=== PATIENT | female | born 1955 | race Caucasian/White ===

== ENCOUNTER 2020-09-23 06:57 | Outpatient (REF) | payer OTHER, SELFPAY ==
[2020-09-23 07:31] LABS: Hematocrit 29.3 % (37-47); Hemoglobin 9.3 g/dl (12.0-16.0); Mean Corpuscular HGB Conc 31.7 g/dl (31.0-35.0); Mean Corpuscular Volume 94.5 fL (80-98); Mean Platelet Volume 9.7 fL (9.4-12.3); NRBC Pct Auto 0.8 /100WBC (0.0-0.2); Platelet Count 142 X10*3/uL (160-400); Red Cell Distribution Width 15.1 % (11.0-16.0); White Blood Count 7.6 X10*3/uL (4.8-10.8)
[2020-09-23 07:46] LABS: Alanine Aminotransferase 39 U/L (0-31); Albumin Level 3.2 g/dL (3.5-5.0); Alkaline Phosphatase 65 U/L (39-117); Anion Gap 13 (12-20); Aspartate Amino Transferase 41 U/L (5-31); Bilirubin Total 0.7 mg/dL (0.0-1.0); Blood Urea Nitrogen 11 mg/dL (9-16); Calcium 8.1 mg/dL (8.4-10.2); Carbon Dioxide 28 mmol/L (22-29); Chloride 105 mmol/L (96-108); Estimated Glomerular Filt Rate > 60; Glucose Random 160 mg/dL (60-115); Potassium 3.7 mmol/l (3.3-5.1); Sodium 142 mmol/L (135-145); Total Protein 5.6 g/dL (6.5-8.0)
[2020-09-24 08:12] LABS: Glucose Urine UA NEG (NEG); Leukocyte Esterase Urine NEG (NEG); Nitrite Urine NEG (NEG); Urine Blood NEG (NEG); Urine Ketones NEG (NEG); Urine Protein NEG (NEG-TRACE)
[2020-09-24 08:21] LABS: Appearance Urine CLEAR; Color Urine YELLOW
== END 2020-09-23 06:58 | disposition home or self-care (01) ==
LOC: HO.MMNH1L 06:57
PROVIDERS: Visit Provider Family Medicine
DX: A41.9 Sepsis, unspecified organism (principal); S82.892A Other fracture of left lower leg, initial encounter for closed fracture; X58.XXXA Exposure to other specified factors, initial encounter; Y93.9 Activity, unspecified; Y92.9 Unspecified place or not applicable; Y99.9 Unspecified external cause status
CPT/HCPCS: 36415; 80053; 81003; 85027; 87086

== ENCOUNTER 2020-09-23 19:15 | Outpatient (REF) | payer OTHER, SELFPAY | END 2020-09-23 19:16 | disposition home or self-care (01) | LOC: HO.MMNH1L 19:15 | PROVIDERS: Visit Provider Family Medicine | DX: Z13.89 Encounter for screening for other disorder (principal) ==

== ENCOUNTER 2020-09-27 13:07 | Outpatient (REF) | payer OTHER, SELFPAY ==
[2020-09-27 07:58] LABS: Hematocrit 35.1 % (37-47); Hemoglobin 10.8 g/dl (12.0-16.0); Mean Corpuscular HGB Conc 30.8 g/dl (31.0-35.0); Mean Corpuscular Hemoglobin 30.3 pg (27.0-33.0); Mean Corpuscular Volume 98.3 fL (80-98); Mean Platelet Volume 9.7 fL (9.4-12.3); NRBC Pct Auto 0.4 /100WBC (0.0-0.2); Platelet Count 239 X10*3/uL (160-400); Red Blood Count 3.57 X10*6/uL (4.20-5.50); Red Cell Distribution Width 15.7 % (11.0-16.0); White Blood Count 13.1 X10*3/uL (4.8-10.8)
[2020-09-27 08:16] LABS: Anion Gap 18 (12-20); Blood Urea Nitrogen 15 mg/dL (9-16); Carbon Dioxide 33 mmol/L (22-29); Chloride 94 mmol/L (96-108); Estimated Glomerular Filt Rate 45; Glucose Random 110 mg/dL (60-115); Potassium 5.1 mmol/L (3.3-5.1); Sodium 140 mmol/L (135-145)
== END 2020-09-27 13:08 | disposition home or self-care (01) ==
LOC: HO.MMNH1L 13:07
PROVIDERS: Visit Provider Family Medicine
DX: A41.9 Sepsis, unspecified organism (principal); S82.892D Other fracture of left lower leg, subsequent encounter for closed fracture with routine healing; X58.XXXD Exposure to other specified factors, subsequent encounter
CPT/HCPCS: 36415; 80048; 85027

== ENCOUNTER 2020-10-04 10:40 | Outpatient (REF) | payer OTHER, SELFPAY ==
[2020-10-04 07:53] LABS: Hematocrit 34.5 % (37-47); Hemoglobin 10.7 g/dl (12.0-16.0); Mean Corpuscular Volume 96.6 fL (80-98); Mean Platelet Volume 9.9 fL (9.4-12.3); NRBC Pct Auto 0.2 /100WBC (0.0-0.2); Platelet Count 229 X10*3/uL (160-400); Red Blood Count 3.57 X10*6/uL (4.20-5.50); Red Cell Distribution Width 14.9 % (11.0-16.0); White Blood Count 10.4 X10*3/uL (4.8-10.8)
[2020-10-04 08:10] LABS: Anion Gap 18 (12-20); Blood Urea Nitrogen 8 mg/dL (9-16); Calcium 8.7 mg/dL (8.4-10.2); Carbon Dioxide 28 mmol/L (22-29); Chloride 99 mmol/L (96-108); Estimated Glomerular Filt Rate > 60; Glucose Random 142 mg/dL (60-115); Potassium 4.8 mmol/L (3.3-5.1); Sodium 140 mmol/L (135-145)
== END 2020-10-04 10:41 | disposition home or self-care (01) ==
LOC: HO.MMNH1L 10:40
PROVIDERS: Visit Provider Family Medicine
DX: S82.892D Other fracture of left lower leg, subsequent encounter for closed fracture with routine healing (principal); A41.9 Sepsis, unspecified organism
CPT/HCPCS: 36415; 80048; 85027

== ENCOUNTER 2023-05-31 09:06 | Outpatient (REF) | payer MEDICARE, SELFPAY | END 2023-05-31 09:07 | disposition home or self-care (01) | LOC: HO.HOSX 09:06 | PROVIDERS: Visit Provider Orthopaedic Surgery | DX: M25.561 Pain in right knee (principal); M25.562 Pain in left knee; G60.9 Hereditary and idiopathic neuropathy, unspecified; M21.40 Flat foot [pes planus] (acquired), unspecified foot; G89.4 Chronic pain syndrome; Z79.891 Long term (current) use of opiate analgesic; Z79.899 Other long term (current) drug therapy; Z91.81 History of falling; Z87.81 Personal history of (healed) traumatic fracture | CPT/HCPCS: 20610; 73560; 73565; 99212; J1100 ==

== ENCOUNTER 2023-05-31 10:15 | Outpatient (AMB) | payer MEDICARE, SELFPAY ==
--- NOTE | 2023-05-31 10:33 | MHC.OFFVIS ---
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 X rays updated today in the office. Fell 3 weeks ago while walking. She is on oxycodone and oxycontin. She uses a wheelchair. Allergies ciprofloxacin [From CIPRO] Allergy (Intermediate, Unverified 05/31/23 10:35) NECK BURNING/BLISTERS clarithromycin [From BIAXIN] Allergy (Intermediate, Unverified 05/31/23 10:35) NECK BURNING/BLISTERS Penicillins [PENICILLINS] Allergy (Intermediate, Unverified 05/31/23 10:35) HAND SWELLING/ITCHING levofloxacin [Levaquin] Allergy (Unknown, Verified 05/31/23 10:35) Unknown From CIPRO Allergy (Intermediate, Uncoded 05/31/23 10:35) NECK BURNING/BLISTERS Medication List - Last Reconciled 05/31/23 by Malika Egan RN aspirin ([facility] Aspirin) 81 mg PO DAILY calcium carbonate (Calcium 500) 500 mg PO DAILY carvedilol 12.5 mg PO BID dapagliflozin propanediol (Farxiga) 5 mg PO DAILY dulaglutide (Trulicity) 3 mg subcut QWEEK duloxetine 30 mg PO BID lactobacillus combination no.9 (Adult 50 Plus Probiotic) 4,000 mmu cells PO DAILY lactulose 20 grams PO BID magnesium oxide 400 mg PO DAILY meloxicam 15 mg PO DAILY metformin 1,000 mg PO BID omeprazole 20 mg PO DAILY oxycodone 15 mg PO Q6H PRN oxycodone ER (OxyContin) 30 mg PO BID pramipexole 1 mg PO DAILY pregabalin 150 mg PO BID sennosides (senna) 8.6 mg PO BEDTIME verapamil ER 200 mg PO BEDTIME HPI 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 She complains of pain in her knees with daily & weight-bearing activities. She denies any prior treatments, including PT. She has a hx of peripheral neuropathy and several LE injuries. She has broken both of her ankles, fractured her right knee, and tore the meniscus in her right knee in the last few years. Due to her ankles and neuropathy she has fallen several times and is now primarily in a wheelchair, and was told to avoid using her walker for WB. She says she was told by Dr. Camarillo in neurology to remain using her wheelchair She has ankle braces that she wear when she has to WB, and has a hx of failed ankle surgeries. She is on Oxycodone & Oxycontin for pain relief, which is prescribed by her PCP. She is taking 120mg Oxycodone and 60mg Oxycontin daily. She says she has been seen by Pain Management at an outside clinic in the past but only for a single appointment and she was unhappy with her treatment. She reports having negative side effects when taking Lyrica & Gabapentin and does not want to take these medications. She is frustrated by her prior treatment in general and says she has no trust in anybody anymore . She says she has broken both of her elbows in the past and has poor elbow ROM. She also complains of pain in her shoulders and says she is scheduled for an MRI to assess her shoulders. Review of Systems Const All systems reviewed & are unremarkable except as noted in HPI and below Physical Exam Const General: no acute distress, alert and awake Orientation/consciousness: patient oriented x3 HEENT Head: Yes normocephalic and Yes atraumatic Eyes EOM: EOMs intact bilaterally Resp Effort & Inspection: normal respiratory effort and able to speak in complete sentences Cardio Jugular venous distension: no JVD Skin General skin exam: turgor normal Rashes: no rashes Neuro General: patient oriented x3 Extrem Other: Bilateral Knees: global ttp bilateral knees with no effusion and mild joitn lien tenderness. 5-1100 deg motion bilaterally Psych Appearance: grossly normal Affect: normal affect Attitude: cooperative Office Procedures Joint Injection/Drain Joint Injection/Drain Details: Injected 1 mL of Decadron and 3 mL 1% lidocaine and 3 mL of 0.25% Marcaine. Site was prepped using aseptic technique. Patient tolerated the procedure well. Primary Site: right knee Secondary Site: left knee Approach Used: anterolateral Coding - Large joint - Glenohumeral/Tronchanteric Bursa/Intraarticular Procedure code (CPT) selection complete Results Reviewed Results Reviewed: 05/31/23 11:04 BUPivacaine MPF 0.25 % [Sensorcaine-MPF 0.25% 10 ML] 10 ml .ROUTE .STK-MED ONE Lidocaine HCl 2 % MPF [Xylocaine 2 % MPF] 5 ml .ROUTE .STK-MED ONE dexAMETHasone sod phosphate [Decadron] 4 mg .ROUTE .STK-MED ONE I personally reviewed relevant radiographs. Left knee: Unremarkable exam Right knee: Degenerative change at the patellofemoral and medial femoral tibial joints. Question old trauma to the proximal lateral tibia and fibular head/tibiofibular joint. Assessment & Plan Assessment & Plan (1) Diabetes mellitus: Code(s): E11.9 - Type 2 diabetes mellitus without complications Plan: I discussed the hyperglycemic effects of steroid injections (2) Peripheral neuropathy, hereditary/idiopathic: Code(s): G60.9 - Hereditary and idiopathic neuropathy, unspecified Plan: Told by Neurologist to remain in a wheelchair and remain non-WB due to a hx of falls. She is taking Oxycodone & Oxycontin. (3) History of ankle fracture: Comment: Bilateral Code(s): Z87.81 - Personal history of (healed) traumatic fracture (4) Acquired flat foot: Code(s): M21.40 - Flat foot [pes planus] (acquired), unspecified foot Plan: Bilateral flat foot deformity with advanced collapse (5) Chronic pain disorder: Code(s): G89.4 - Chronic pain syndrome Plan: This is a 67 year old woman with bilateral knee pain ~3 weeks of pain S/P fall. She has pain with weight-bearing but is primarily in a wheelchair as instructed by her Neurologist due to her peripheral neuropathy. She denies any prior treatment and continues to have pain, despite taking 120mg Oxycodone and 60mg Oxycontin daily. I discussed her diagnosis and treatment options. She is not a good surgical candidate as she is not ambulating at this time. I recommend she begin to work on ambulation and remaining active as tolerated. I injected her bilateral knees today, which she tolerated well, and ordered at-home PT for her. I referred her to Dr. Caldera, our solderer furnace. Plan Scribed for Alexandro Goyal MD by Kaleb Mack, vp medical, on 05/31/23 at 10:55 AM, EST. Orders: Orders XR knee RT 2V 05/31/23 M25.569 - Pain in unspecified knee XR knee LT 2V 05/31/23 M25.569 - Pain in unspecified knee XR knee standing BI 05/31/23 M25.569 - Pain in unspecified knee Coding Level of Care Code New Pt Level 5 (08147) Diagnoses Diabetes mellitus E11.9 Peripheral neuropathy, hereditary/idiopathic G60.9 History of ankle fracture Z87.81 Acquired flat foot M21.40 Chronic pain disorder G89.4 CPT Codes Coding - 39230 Large joint: 81250 - Large joint ([id number]) Coding - Joint 7: 07392 - Glenohumeral/Tronchanteric Bursa/Intraarticular ([id number])
== END 2023-05-31 11:44 | disposition home or self-care (01) ==
PROVIDERS: PCP Internal Medicine; Visit Provider Orthopaedic Surgery
DX: M25.561 Pain in right knee (principal); M25.562 Pain in left knee; W19.XXXA Unspecified fall, initial encounter; Z87.81 Personal history of (healed) traumatic fracture; M21.40 Flat foot [pes planus] (acquired), unspecified foot; G89.4 Chronic pain syndrome
CPT/HCPCS: 20610; 99214